=== PATIENT | male | born 1990 | race Caucasian/White ===

== ENCOUNTER 2016-09-05 01:19 | Emergency (ER) | payer OTHER ==
[2016-09-05] MEDS ORDERED: IOPAMIDOL-300 100 ML VIAL IVP ONE (03:27)
== END 2016-09-05 05:14 | disposition home or self-care (01) ==
DX: R10.31 Right lower quadrant pain (principal)
CPT/HCPCS: 36415; 74177; 80053; 81003; 83690; 85025; 99283; 99284; Q9967

== ENCOUNTER 2017-06-28 10:33 | Outpatient (CLI) | payer OTHER ==
--- NOTE | 2017-06-28 15:51 | MRI Report ---
EXAM: LEFT ANKLE/HINDFOOT MRI WITHOUT CONTRAST EXAM DATE: 06/28/2017 12:53 PM. CLINICAL HISTORY: CHRONIC BILAT ANKLE INSTABILITY REFRACTORY. COMPARISON: None. TECHNIQUE: Multiplanar, multisequence T1-weighted and fluid-sensitive sequences of the ankle/hindfoot without contrast. Other: None. FINDINGS: Bones: Small marginal osteophytes anterior ankle on both sides of the joint. Small FOCUS subcortical cyst formation in the talus at the anterior margin of the posterior subtalar facet. Also mild cartilage thinning at this site. Remaining bony structures appear normal. Articular Cartilage: Mild cartilage thinning subtalar joint. Ligaments: The anterior and posterior tibiofibular, anterior and posterior talofibular, and calcaneof ibular ligaments are intact. The deep and superficial deltoid and spring ligaments are intact. Anterior Tendons: The tibialis anterior, extensor hallucis longus, and extensor digitorum longus tend ons are unremarkable. Medial Tendons: The tibialis posterior, flexor digitorum longus, and flexor hallucis longus tendons a re unremarkable. Lateral Tendons: The peroneus brevis and longus are unremarkable. Achilles Tendon: The Achilles tendon is unremarkable. Musculature: No edema or fatty atrophy. Other: No effusions. The contents of the sinus tarsi and tarsal tunnel are unremarkable. No plantar f asciitis. The subcutaneous tissues are unremarkable. IMPRESSION: 1. Mild degenerative changes in the anterior ankle and in the subtalar joint. 2. Tendons and ligaments appear intact. [facility]CULOSKE[facility]IOLOG[facility] SECTION Referring Provider Line: [phone] SITE ID: [id number]
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
== END 2017-06-28 10:34 | disposition home or self-care (01) ==
LOC: DI 10:33
PROVIDERS: ATTEND Physician Assistant
DX: M19.072 Primary osteoarthritis, left ankle and foot (principal); M19.071 Primary osteoarthritis, right ankle and foot

== ENCOUNTER 2020-07-04 16:20 | Outpatient (CLI) | payer BC | END 2020-07-04 16:21 | disposition home or self-care (01) | LOC: COV 16:20 | PROVIDERS: ATTEND Family Medicine | DX: R05 Cough (principal); Z20.828 Contact with and (suspected) exposure to other viral communicable diseases; R09.81 Nasal congestion ==

== ENCOUNTER 2021-01-05 11:01 | Outpatient (CLI) | payer BC ==
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
[2021-01-05 11:41] VITALS: BP 139/84
== END 2021-01-05 11:02 | disposition home or self-care (01) ==
LOC: SC 11:01
PROVIDERS: ATTEND Nurse Practitioner Family
DX: G47.10 Hypersomnia, unspecified (principal); R51.9 Headache, unspecified; R06.81 Apnea, not elsewhere classified; R06.83 Snoring; G47.8 Other sleep disorders; E66.3 Overweight; Z68.29 Body mass index [BMI] 29.0-29.9, adult
CPT/HCPCS: 99203; 99212

== ENCOUNTER 2021-02-24 14:09 | Outpatient (CLI) | payer BC | END 2021-02-24 14:10 | disposition home or self-care (01) | LOC: SC 14:09 | PROVIDERS: ATTEND Nurse Practitioner Family | DX: G47.10 Hypersomnia, unspecified (principal); G47.8 Other sleep disorders; R53.83 Other fatigue; R51.9 Headache, unspecified; R06.81 Apnea, not elsewhere classified; R06.83 Snoring | CPT/HCPCS: 95806 ==